=== PATIENT | female | born 1950 | race Two or more races ===

== ENCOUNTER 2023-06-29 09:16 | Outpatient (CLI) | payer OTHER | END 2023-06-29 09:25 | disposition home or self-care (01) | LOC: SONOGRAMA 09:16 | PROVIDERS: ATTEND Internal Medicine Gastroenterology | DX: R10.9 Unspecified abdominal pain (principal) ==

== ENCOUNTER 2023-07-20 13:30 | Outpatient (CLI) | payer OTHER | END 2023-07-20 13:35 | disposition home or self-care (01) | LOC: RAD 13:30 | DX: M54.51 Vertebrogenic low back pain (principal); M99.03 Segmental and somatic dysfunction of lumbar region; M99.04 Segmental and somatic dysfunction of sacral region; M99.05 Segmental and somatic dysfunction of pelvic region ==

== ENCOUNTER 2023-07-24 09:44 | Outpatient (CLI) | payer OTHER | END 2023-07-24 09:51 | disposition home or self-care (01) | LOC: MRI 09:44 | DX: M99.03 Segmental and somatic dysfunction of lumbar region (principal); M99.04 Segmental and somatic dysfunction of sacral region; M99.05 Segmental and somatic dysfunction of pelvic region; M54.51 Vertebrogenic low back pain | CPT/HCPCS: 72148 ==